=== PATIENT | female | born 1930 | race Caucasian/White ===

== ENCOUNTER 2018-09-05 14:51 | Outpatient (CLI) | payer OTHER, MEDICARE ==
--- NOTE | 2018-09-05 21:30 | GCON ---
[f rep st] CONSULTATION CARDIOLOGY CONSULT DATE OF CONSULTATION: 09/05/2018 CHIEF COMPLAINT: Shortness of breath. HISTORY OF PRESENT ILLNESS: This is an 88-year-old female with history of known aortic stenosis. The patient has been having worsening dyspnea on exertion for the last 3 months, which has been graduall y increasing in severity. The patient did have an echocardiogram done at an outside hospital approxim ately 4-5 weeks ago which showed an TENA of 0.9 cm with moderately severe gradient. The patient has in dicated since that time her shortness of breath has worsened and she can perform only minimal tasks w ithout getting dyspnea. She denies any current chest pain. Baseline ECG on the monitor shows sinus rh ythm. Blood pressure is currently stable. PAST MEDICAL HISTORY: Significant for known aortic stenosis, hypertension. HOME MEDICATIONS: Please see patient's attached list. SOCIAL HISTORY: Patient denies any smoking or drinking. FAMILY HISTORY: Noncontributory. REVIEW OF SYSTEMS: Patient denies any visual changes. No headache and no neck pain. No throat pain. No nasal pain. No ear pain. No back pain. No chest pain. No abdominal pain. She does indicate a moder ate dyspnea with minimal exertion. No lower extremity pain. PHYSICAL EXAM: VITAL SIGNS: Patient is clear, afebrile at 96, blood pressure currently 130/70, heart rate is 72, respirations 12, satting 95% on 2 L nasal cannula. HEENT: Pupils equal and reactive to l ight and accommodation is intact. CARDIAC: Exam is regular rate and rhythm S1, S2. 3/6 systolic murmu r heard best at the right upper sternal border. LUNGS: Decreased breath sounds at the right base. ABD OMEN: Soft, nontender without guarding. EXTREMITIES: No clubbing, no cyanosis, no edema. NEUROLOGIC: The patient is alert and oriented x3. LABORATORY VALUES: Pending at this point. ASSESSMENT/PLAN: Shortness of breath. At this time, we will repeat the patient's surface echocardiog martha to evaluate her worsening shortness of breath. If her TENA has significantly worsened but her grad ients are still [id number] we will obtain a dobutamine stress echo to evaluate if this is a l ow gradient low output severe state. If needed, the patient will be consented for right and left h eart catheterization in addition to her evaluation for valvular heart disease to make sure coronary a rtery disease is not contributing to her underlying state. Further orders following clinical course. /[id number]/MODL
--- NOTE | 2018-09-06 12:19 | ECHO ---
[email or web address] [place] [id number] Main: [phone] Echocardiography Examination Stress Echo Name: SUE LINK MR#: [id number] Study Date: 09/05/2018 Study Time: 03:56 PM Date of : 1930 Age: 88 year(s) Height: 152.4 cm (60 in.) Weight: 54.43 kg (120 lb.) BSA: 1.5 m2 Gender: Female Examination: Stress Echo Contrast: Image Quality: Rhythm: Heart Rate: BP: 138 mmHg/67 mmHg Indication: Eval aortic stenosis Procedure Staff Referring Physician: Geriatrics Physician: Devora Matta [facility] Reading Physician: Joselito Mckeon MD Requesting Provider: Ordering Physician: Joselito Mckeon MD Indication: Eval aortic stenosis Measurements Chambers AV/MV Label Value Normal Value Label Value Normal Value LVOTd 2.2 cm (1.8cm - 2cm) AV PGmean 31 mmHg LVOT VTI 19.3 cm (18cm - 22cm) TENA (VTI) 0.9 cm2 LVOT PGmean 1 mmHg LVOT Vmean 0.56 m/s Findings Aortic Valve: This was a modified dobutamine stress echo to eval aortic stenosis. The resting Vmax was 3.53 with an AV max PG of 50mmHG and a mean of 26mmHG.At 30mcg of dobutamine, the AV max velocity was 4.01 with a AV max PG of 64mmHG and a mean PG os 30mmHG. . Exam Details Procedure Ordered: Stress Echo (No Signature Object) Patient: SUE LINK Study Date: 09/05/2018 Page 1 of 1 03:56 PM [id number]
== END 2018-09-05 16:40 | disposition home or self-care (01) ==
LOC: FCATH 14:51
PROVIDERS: ATTEND Internal Medicine Cardiovascular Disease
DX: I35.0 Nonrheumatic aortic (valve) stenosis (principal); R06.02 Shortness of breath

== ENCOUNTER 2018-09-06 07:36 | Observation (INO) | payer OTHER, MEDICARE ==
[2018-09-06] MEDS ORDERED: DIAZEPAM 5 MG TAB PO ONE (07:38)
[2018-09-06] MEDS ORDERED: ASPIRIN EC 325 MG TAB PO ONE ×2 (07:38→08:02)
[2018-09-06] MEDS ORDERED: FAMOTIDINE 20 MG TAB PO ONE (07:38)
[2018-09-06] MEDS ORDERED: diphenhydrAMINE 25 MG CAP PO ONE ×2 (07:38→08:02)
[2018-09-06] MEDS ORDERED: NS 1,000 ML IV ONE (07:38)
[2018-09-06] MEDS ORDERED: FAMOTIDINE 20 MG TAB ONE (08:02)
[2018-09-06] MEDS ORDERED: DIAZEPAM 5 MG TAB ONE (08:03)
[2018-09-06] MEDS ORDERED: LIDOCAINE 1% 300 MG/30 ML SDV ONE (08:17)
[2018-09-06] MEDS ORDERED: fentaNYL 100 MCG/2 ML INJ ONE ×2 (08:18→10:50)
[2018-09-06] MEDS ORDERED: MIDAZOLAM 2 MG/2 ML VIAL ONE (08:18)
[2018-09-06] MEDS ORDERED: IOPAMIDOL (ISOVUE-370) 150 ML BTL IV ONE ×3 (08:18→10:46)
[2018-09-06 08:30] LABS: PLATELET COUNT 165 10^3/uL (150-400)
--- NOTE | 2018-09-06 08:35 | CPEKG ---
Test Reason : OPEN Blood Pressure : / mmHG Vent. Rate : 058 BPM Atrial Rate : 058 BPM P-R Int : 148 ms QRS Dur : 095 ms QT Int : 432 ms P-R-T Axes : 065 002 053 degrees QTc Int : 425 ms Sinus rhythm Abnormal R-wave progression, early transition Confirmed by Doug Lopez ([id number]) on 09/06/2018 8:34:31 AM Referred By: DEANNA LINK Confirmed By:Doug Lopez
[2018-09-06 08:39] LABS: INR 0.91 (0.83-1.16); PROTIME(PATIENT) 11.9 SEC (12.0-15.0)
--- NOTE | 2018-09-06 08:40 | PDHPUP ---
History & Physical Update H&P update statement: This history and physical update is based on an assessment of the patient which was completed after admission or registration (within 24 hours), but prior to the surgery/procedure. H&P update: H&P reviewed & patient examined, no change in patient's condition since H&P completed
--- NOTE | 2018-09-06 08:40 | PDPROPOC ---
Sedation Plan of Care Sedation Plan of Care: mental status noted, patient educated of risks, benefits , alternatives, patient can tolerate sedation ASA Classification: ASA 2 Planned drugs: fentanyl, midazolam Mallampati Score: Class 2 Mallampati Reference Image: Patient passed 3-3-2 rule?: Yes
[2018-09-06] MEDS ORDERED: CLOPIDOGREL BISULFATE 75 MG TAB ONE (09:12)
[2018-09-06] MEDS ORDERED: BIVALIRUDIN 250 MG/5 ML VIAL IV ONE (09:41)
[2018-09-06] MEDS ORDERED: hydrALAZINE 20 MG/ML VIAL ONE (10:05)
[2018-09-06] MEDS ORDERED: NITROGLYCERIN 1,500 MCG/15 ML VIAL MISC ONE (10:15)
[2018-09-06] MEDS ORDERED: CARBOXYMETHYLCELLULOSE 1% 0.4 ML DROPERETTE EACHEYE PRN (11:53)
[2018-09-06] MEDS ORDERED: traZODone 50 MG TAB PO PRN (11:53)
[2018-09-06] MEDS ORDERED: HYDROCODONE/APAP 5/325 TAB PO PRN (11:56)
[2018-09-06] MEDS ORDERED: NITROGLYCERIN 0.4 MG BTL SL PRN (11:56)
[2018-09-06] MEDS ORDERED: ATROPINE SULFATE 1 MG/10 ML SYR IVP PRN (11:56)
[2018-09-06] MEDS ORDERED: LORazepam 2 MG/ML INJ IVP PRN (11:56)
[2018-09-06] MEDS ORDERED: OXYCODONE/APAP 5/325 TAB PO PRN (11:56)
[2018-09-06] MEDS ORDERED: ONDANSETRON 4 MG/2 ML VIAL IVP PRN (11:56)
[2018-09-06] MEDS ORDERED: TEMAZEPAM 15 MG CAP PO PRN (11:56)
--- NOTE | 2018-09-06 12:56 | CPIP ---
[f rep st] INVASIVE CARDIAC PROCEDURE DATE OF PROCEDURE: 09/06/2018 INDICATION FOR PROCEDURE: Shortness of breath, known severe aortic stenosis. PROCEDURE: 1. Nonselective left groin sheathogram. 2. 7-[place] sheath in the right common femoral vein. 3. Right heart catheterization with [place] catheter. 4. Bilateral coronary angiography. 5. Abdominal aortogram. 6. Percutaneous coronary intervention of mid right coronary artery utilizing Synergy 2.5 x 16 mm salome nt. 7. Attempted wiring of heavily calcified tortuous left anterior descending. HISTORY: Briefly, this is an 88-year-old female with history of worsening shortness of breath, known severe aortic stenosis, which is worsened over the last 6 months. The patient was consented for rig ht and left heart catheterization in anticipation for eventual TAVR as discussed with Dr. Coy from CT Surgery. DESCRIPTION OF PROCEDURE: After informed consent, the patient was brought to [facility] where the left groi n was prepped and draped in sterile fashion. Using lidocaine, a short 6-[place] sheath in the right c ommon femoral artery verified angiographically. A 7-[place] sheath in the left common femoral vein. [place] catheter was advanced. PA pressure systolic was 47 with diastolic 20 with a mean of 32. W edge pressure was a mean of 17, A-wave 23, V-wave 23. RV pressure systolic 45, diastolic 9, end of 1 7. RA pressure mean of 12, A-wave 16, V-wave 12. Cardiac output was measured to be 3.7, with a Constantino of 2.4. AO sat was 88% with a PA sat of 66%. [place] catheter was then removed. There was exces sive tortuosity and calcification of the descending aorta and aortic iliac conduits; thus, we upsized the short 6-[place] sheath in the left common femoral artery to a 45 cm Destination sheath over a sti ff wire. Through this 6-[place] sheath, a JL4 catheter was advanced to the left coronary artery. Images of the left coronary artery revealed normal, but tortuous left main. The circumflex artery had mild plaque disease with mild plaque disease ranging 20% to 30% through its course, but no high-grade lesion. T he LAD was a very tortuous and heavily calcified vessel with multiple lesions throughout its course. There was a proximal lesion at the takeoff of septal wood planer, which had an a pinch of approximate ly 70% going into another area in its mid LAD after a tortuous calcified section of another area of 7 0%. There was a third lesion of at least 70% in the mid distal aspect before the LAD turned to an ap ical LAD. After these images were obtained, the JL4 catheter was removed. The JR4 catheter was advanced to the right coronary artery. Images of the right coronary artery reve aled normal ostial RCA, 30% disease in the proximal RCA. There was a smooth tubular 70% lesion in th e mid RCA. Distally, the RPDA was small and the RPLS appeared to be free of disease. After these im ages were obtained, the JR4 catheter was removed. INTERVENTION REPORT: At this time, we decided to intervene on the smooth tubular lesion in the mid R CA as this appeared to be a soft plaque compared to the left coronary artery disease. A hockey-stick guide catheter was advanced to the right coronary artery. A Choice PT wire was placed down to the d istal RPLS. Predilatation commenced with a 2.5 x 12 balloon at 10 atmospheres. After this was perfo rmed, the balloon was removed. Angiogram was obtained, which showed improved patency of the mid RCA. We decided to attempt to place a stent; however, the stent would not traverse the proximal calcified area; thus, a GuideLiner was placed and 2.5 x 60 mm Synergy drug eluting stent was placed in the mid RCA and deployed at 14 atmospheres. After balloon angiogram was obtained, which showed excellent pat ency of the area with mild step-up, step-down, 200 mcg of nitroglycerin were administered IC and this verified no perforation, dissection from the stented area. The wire was pulled back. The Guide Cat heter was removed. At this time, we decided to attempt to wire the LAD given the multiple tandem les ions and heavily calcification tortuosity, a JL4 Guide Catheter was advanced to left coronary artery and advanced. Of note, the patient was on Angiomax bolus and drip during this entire time and had re ceived 600 Plavix prior to the procedure. A JL4 6-[place] Guide Catheter was placed in left coronary artery. Attempts to place the Choice PT wire to maneuver down the LAD; however, this wire could not be manipulated, secondary to the excessive calcification, tortuosity of the vessel. This wire was re moved, a Fielder XT was attempted to wire, which did go further than the Choice PT. In attempts to m jake this Fielder all the way down the LAD, we decided to place a 1.5 x 12 Euphora balloon as backup s upport; however, this balloon could not even traverse the proximal tortuous calcified area of the LAD without pulling the wire back. Given the excessive tortuosity and heavy calcification of these mult iple tandem lesions in the LAD, we decided that if the wire could not traverse the entire length of t he vessel, then it would be impossible to get any equipment to track over the wire to fix this area. We decided this time to pull the wire back and retake images, which showed once again intact LAD flow with no new dissection perforation. The Guide Catheter was removed. The pigtail catheter was advan linette to the descending aorta for abdominal aortogram, which showed tortuous, but patent heavily calcif ied aortoiliacs with a tortuous descending aorta. Sheath was exchanged for a short 6-[place] sheath. The patient tolerated the procedure well with no complications. IMPRESSION: 1. Successful percutaneous coronary intervention of high-grade tubular soft mid right coronary arter y lesion. 2. Heavily calcified, tortuous with tandem lesions in the left anterior descending , which could not even be wired, let alone having equipment passed. 3. Mild plaque disease in the left circumflex artery. 4. Moderate pulmonary hypertension. 5. Reduced cardiac output. PLAN: The patient has already seen CT Surgery who deemed her a quite frail and high risk surgical ca ndidate. The patient, herself, does not want to proceed with open heart surgery if possible, and giv en her overall age and frailty , we will plan for a move forward TAVR despite her LAD disease, second el to the fact the LAD disease is multiple lesions in a very heavily calcified vessel and this most likely is not driving her underlying shortness of breath. The patient does not have any chest pain o r angina-like symptoms. We will continue with our TAVR workup per protocol with CT of the chest, abd omen, and pelvis, second surgical consult, and carotid ultrasound. /[id number]/MODL
[2018-09-06] MEDS ORDERED: FLUTICASONE NASAL 120 SPRAYS/16 GM MDI EACHNARE PRN (13:28)
--- NOTE | 2018-09-06 18:18 | GCON ---
[f rep st] CONSULTATION DATE OF CONSULTATION: 09/06/2018 REFERRING PHYSICIAN: Yogesh Chris MD REASON FOR CONSULTATION: Severe aortic stenosis. HISTORY: The patient is an 88-year-old woman with worsening shortness of breath. She has had a hist ory of aortic stenosis and recently underwent echocardiography which shows that her disease has progr essed to severe aortic stenosis, and she is symptomatic. PAST MEDICAL HISTORY: Remarkable for hypertension, depression, macular degeneration, hypothyroidism, pulmonary hypertension, and aortic stenosis. PAST SURGICAL HISTORY: Remarkable for spinal fusion in 2006. PHYSICAL EXAMINATION: GENERAL: She is an elderly appearing, frail 88-year-old woman in no acute dis tress. HEART: Systolic murmur. LUNGS: Clear to auscultation. EXTREMITIES: No clubbing, cyanosis , or edema. NEUROLOGIC: She is alert and oriented. DATA REVIEWED: Echocardiogram shows severe aortic stenosis with a valve area 0.8 sq cm. She is undergoing coronary angiography today. IMPRESSION: Severe symptomatic aortic stenosis in an 88-year-old woman who is at increased risk for surgical aortic valve replacement. RECOMMENDATIONS: I have recommended that she proceed with her TAVR workup. I would anticipate that she may have some coronary artery disease, but hopefully this is amenable to PCI if it is significant , and we can continue with the planned TAVR workup and evaluation. /[id number]/MODL
[2018-09-06] MEDS ORDERED: LATANOPROST 0.005% 2.5 ML OPHT DROPS EACHEYE SCH (21:00)
[2018-09-07 04:48] LABS: PLATELET COUNT 138 10^3/uL (150-400)
--- NOTE | 2018-09-07 06:32 | PDCARPN ---
Cardiology Progress Note Chief Complaint: SOB Assessment/Plan: Assessment: SOB severe CAD Plan: 09/07/18 06:29 patient stable this AM pt has seen Dr. Coy who deemed patient suitable for TAVR Patient has known diffuse severe LAD disease which was present on prior cath RCA disease was new--PCI performed CTA today d/c later this AM Subjective: doing well Reviewed/Discussed With: multidisciplinary team Time Spent with Patient: greater than 25 minutes Time Spent with Patient: Greater than 25 minutes spent on this patients care, greater than 50% of time spent counseling, educating, and coordinating care regarding the above mentioned plan. Objective: Vital Signs (8 Hrs) Temp Pulse Resp BP Pulse Ox 09/07/18 03:19 36.6 C 69 19 104/50 L 99 09/06/18 23:38 36.6 C 71 16 122/88 H 99 Intake/Output (24 Hrs) 09/06/18 09/07/18 09/08/18 05:59 05:59 05:59 Intake Total 400 Balance 400 Intake: Oral (ml) 400 Other: Weight 54.431 kg Number of Voids Toilet 1 Result Diagrams: 09/07/18 03:18 09/07/18 03:18 - Physical Exam Constitutional: no apparent distress Eyes: PERRL Ears, Nose, Mouth, Throat: moist mucous membranes Cardiovascular: regular rate and rhythm, systolic murmur Peripheral Pulses: 1+: femoral (R), femoral (L) Respiratory: clear to auscultate bilat Gastrointestinal: normoactive bowel sounds Genitourinary: no suprapubic tenderness Skin: no rashes Musculoskeletal: no muscular tenderness Neurologic: AAOx3 Psychiatric: cooperative ICD10 Worksheet Patient Problems: Problems Problem Status Onset Aortic stenosis Acute CAD (coronary artery disease) Acute - ICD10 Problem Qualifiers (1) CAD (coronary artery disease) Qualifiers: Coronary Disease-Associated Artery/Lesion type: [place] artery [place] vs. transplanted heart: [place] heart Associated angina: with other forms of angina Qualified Code(s): I25.118 - Atherosclerotic heart disease of [place] coronary artery with other forms of angina pectoris (2) Aortic stenosis Qualifiers: Cardiac valve disease etiology: nonrheumatic Qualified Code(s): I35.0 - Nonrheumatic aortic (valve) stenosis
--- NOTE | 2018-09-07 07:01 | GDS ---
[f rep st] DISCHARGE SUMMARY DISCHARGE DIAGNOSIS: 1. Aortic stenosis. 2. Coronary artery disease. HOSPITAL COURSE: Briefly, this is an 88-year-old female with history of worsening shortness of breat h over the last 6 months. The patient had been having close followup as an outpatient at an outside hospital for her underlying aortic stenosis which has progressed to severe levels. The patient did h ave a recent dobutamine stress echo, which verified the severity of her underlying severe aortic sten osis. The patient also has a known history of severe LAD disease, which was not intervened on second el to heavy tortuosity and calcification. The patient underwent a cardiac catheterization 9, which once again redemonstrated as heavily calcified and tortuous, diffusely diseased LAD. The pa tient had only mild disease in the circumflex artery, but had a new lesion in her mid right coronary artery, which was successfully intervened on with one Synergy drug-eluting stent. The patient tolera sera the procedure well with no issues. Overnight, the patient has been stable with no issues. She i s mildly anemic at 9.7 with a creatinine of 1.5; however, she is clinically stable from a vital signs standpoint. She will undergo her CTAs of her chest, abdomen and pelvis today for her TAVR workup. Our goal will be to plan for eventual TAVR within the week. The patient did see Dr. Coy from [place] [facility] who deemed the patient to be excessively frail and given her known chronic LAD disease, and he r shortness of breath, felt that the aortic stenosis was most likely her underlying driving factor fo r her symptoms. The patient will be discharged later this morning. Will follow up with Dr. Can marie for the second CT surgical opinion for evaluation. If deemed by Dr. Lozano to be suitable for T AVR, we will proceed with this procedure within the week's time. The patient will be discharged home this morning with baby aspirin and Plavix, as well as the rest of her home medications. /[id number]/MODL
[2018-09-07 07:10] VITALS: BP 116/53
[2018-09-07] MEDS ORDERED: CALCIUM CARB W/VIT D 500 MG TAB PO SCH (09:00)
[2018-09-07] MEDS ORDERED: LOSARTAN POTASSIUM 25 MG TAB PO SCH (09:00)
[2018-09-07] MEDS ORDERED: OMEGA-3 FATTY ACIDS 1,000 MG CAP PO SCH (09:00)
[2018-09-07] MEDS ORDERED: CLOPIDOGREL BISULFATE 75 MG TAB PO SCH (09:00)
[2018-09-07] MEDS ORDERED: METOPROLOL SUCCINATE XR 50 MG TAB PO SCH (09:00)
[2018-09-07] MEDS ORDERED: Herbals/Supplements -Info Only PO SCH (09:00)
[2018-09-07] MEDS ORDERED: ASPIRIN 81 MG CHEWABLE TAB PO SCH (09:00)
[2018-09-07] MEDS ORDERED: CYANO/VITAMIN B12 1000 MCG TAB PO SCH (09:00)
--- NOTE | 2018-09-07 09:16 | ASDISCHSUM ---
Discharge Information Plan Status:Home with No Needs Medically Cleared to Leave:09/07/2018 Discharge Date:09/07/2018 CM D/C Disposition:Home, Routine, Self-Care ADT D/C Disposition:Home, Routine, Self-Care Projected Discharge Date:09/07/2018 Transportation at D/C: Discharge Delay Reason: Follow-Up Date:09/07/2018 Discharge Slot: Final Diagnosis: Placement Information Patient Contact Information Contact Name:MIGUEL Relationship:Son Address:[address] City:[facility] Phone: [facility]/Zip Code:[place] [address] Email: Financial Information Financial Class:Medicare Primary Plan Desc:MEDICARE OUTPATIENT Primary Plan Number:[id number] Secondary Plan Desc:AARP/MDR SUPPLEMENT Secondary Plan Number:[id number] Assessment Information LACE LACE Length of stay for Answers: Less than 1 day current admission Acuity / Level of Answers: No Care: Did the patient have an inpatient admission? Comorbidities - select Answers: Chronic pulmonary disease all that apply Other Notes: HTN, hypothyroidism, ma cul ar degeneration, # of Emergency department Answers: 0 visits in the last 6 months Social determinants Answers: Mental health diagnosis (anxiety, depression, pers onality disorders, etc.) Score: 6 Date Signed: 09/07/2018 09:15 AM Electronically Signed By:Cara Leone RN Intervention Information
[2018-09-07] MEDS ORDERED: IOPAMIDOL (ISOVUE 370) 100 ML BTL IV ONE (09:32)
--- NOTE | 2018-09-08 10:22 | CPEKG ---
Test Reason : OPEN Blood Pressure : / mmHG Vent. Rate : 066 BPM Atrial Rate : 066 BPM P-R Int : 151 ms QRS Dur : 092 ms QT Int : 425 ms P-R-T Axes : 063 014 057 degrees QTc Int : 446 ms Sinus rhythm Abnormal R-wave progression, early transition Confirmed by Doug Lopez ([id number]) on 09/08/2018 10:22:25 AM Referred By: DEANNA LINK Confirmed By:Doug Lopez
== END 2018-09-07 11:04 | disposition home or self-care (01) ==
LOC: FCATH 07:36 → F2W 11:29
PROVIDERS: ADMIT Internal Medicine Cardiovascular Disease; ATTEND Internal Medicine Cardiovascular Disease
PROC: 4A023N8 Measurement of Cardiac Sampling and Pressure, Bilateral, Percutaneous Approach (ICD-10-PCS; principal; 2018-09-06)
PROC: B2111ZZ Fluoroscopy of Multiple Coronary Arteries using Low Osmolar Contrast (ICD-10-PCS; principal; 2018-09-06)
PROC: B41D1ZZ Fluoroscopy of Aorta and Bilateral Lower Extremity Arteries using Low Osmolar Contrast (ICD-10-PCS; principal; 2018-09-06)
PROC: 027034Z Dilation of Coronary Artery, One Artery with Drug-eluting Intraluminal Device, Percutaneous Approach (ICD-10-PCS; principal; 2018-09-06)
DX: I25.10 Atherosclerotic heart disease of native coronary artery without angina pectoris (principal); I35.0 Nonrheumatic aortic (valve) stenosis; I70.0 Atherosclerosis of aorta; I70.8 Atherosclerosis of other arteries; D64.9 Anemia, unspecified; I10 Essential (primary) hypertension; E03.9 Hypothyroidism, unspecified; H35.30 Unspecified macular degeneration; F32.9 Major depressive disorder, single episode, unspecified
CPT/HCPCS: 71275; 74174; 93005; 93460; 93880; C1725; C1769; C1874; C1887; C9600; G0278; J0360; J0583; J1644; J2250; J2405; J3010; Q9967

== ENCOUNTER 2018-09-13 06:18 | Inpatient (IN) | payer OTHER, MEDICARE ==
[~2018-09-13 06:18] MED LIST: DOBUTamine/DEXTROSE 250 ML IV ONE
[2018-09-13] MEDS ORDERED: IOPAMIDOL (ISOVUE-370) 150 ML BTL IV ONE (06:52)
[2018-09-13] MEDS ORDERED: LIDOCAINE 1% 300 MG/30 ML SDV ONE (06:52)
[2018-09-13] MEDS ORDERED: BUPIVACAINE/EPI 0.25% 30 ML SDV ONE (06:53)
--- NOTE | 2018-09-13 07:01 | PDANEPAE ---
ANE History of Present Illness here for TAVR ANE Past Medical History - Cardiovascular History Hx Hypertension: No Hx Arrhythmias: No Hx Chest Pain: No Hx Coronary Artery / Peripheral Vascular Disease: Yes Hx CHF / Valvular Disease: No Hx Palpitations: No Cardiovascular History Comment: CAD with LAD disease - Pulmonary History Hx COPD: No Hx Asthma/Reactive Airway Disease: No Hx Recent Upper Respiratory Infection: No Hx Oxygen in Use at Home: Yes Hx Sleep Apnea: Yes - Endocrine History Hx Diabetes: No Hypothyroid: Yes Hyperthyroid: No - Renal History Hx Renal Disorders: No ANE Review of Systems Review of systems is: negative Review of Systems: - Exercise capacity Exercise capacity: <4 METS ANE Patient History - Allergies Allergies/Adverse Reactions: lisinopril Allergy (Verified 09/05/18 15:08) lovastatin Allergy (Verified 09/05/18 15:08) - Home Medications Home medications: home medication list seen and reviewed Home Medications: Aspirin [Aspirin 81mg (*)] 81 mg PO DAILY 09/06/18 [Last Taken Unknown] Calcium Carb W/Vit D [Calcium Carb W/Vit D 500/200 (*)] 500 mg PO DAILY [Last Taken Unknown] Carboxymethylcellulose Sodium [Thera Tears] 1 drop EACHEYE DAILY PRN 09/06/18 [ Last Taken Unknown] Cyanocobalamin [Vitamin B12 (*)] 1,000 mcg PO DAILY 09/06/18 [Last Taken Unknown ] Furosemide [Lasix 40 MG (*)] 40 mg PO DAILY 09/06/18 [Last Taken Unknown] Herbals/Supplements -Info Only 1 ea PO DAILY 09/06/18 [Last Taken Unknown] Latanoprost 0.005% [Xalatan 0.005% (*)] 1 drops EACHEYE HS 09/06/18 [Last Taken Unknown] Losartan Potassium [Cozaar 25 mg (*)] 25 mg PO DAILY 09/06/18 [Last Taken Unknown] Metoprolol Succinate Xr [Toprol Xl 50 mg (*)] 50 mg PO DAILY 09/06/18 [Last Taken Unknown] Garrison-3 Fatty Acids [Fish Oil 1000 mg (*)] 1,000 mg PO DAILY 09/06/18 [Last Taken Unknown] traZODone [traZODONE 50MG (*)] 50 mg PO HS PRN 09/06/18 [Last Taken Unknown] - NPO status NPO Status: no food or drink >8 hours - Smoking Hx Smoking Status: Former smoker ANE Labs/Vital Signs - Vital Signs Vital Signs: reviewed preoperatively; see RN documention for details Height: 149.86 cm Weight: 57.153 kg ANE Physical Exam - Airway Neck exam: FROM Mallampati Score: Class 1 Mouth exam: normal dental/mouth exam - Pulmonary Pulmonary: no respiratory distress - Cardiovascular Cardiovascular: regular rate and rhythym, systolic murmur - ASA Status ASA Status: IV ANE Anesthesia Plan Anesthesia Plan: GA with mask Lines/Monitors: central line
--- NOTE | 2018-09-13 07:10 | PDHPUP ---
History & Physical Update H&P update statement: This history and physical update is based on an assessment of the patient which was completed after admission or registration (within 24 hours), but prior to the surgery/procedure. H&P update: H&P reviewed & patient examined
[2018-09-13] MEDS ORDERED: fentaNYL 100 MCG/2 ML INJ ONE (07:18)
[2018-09-13] MEDS ORDERED: PROPOFOL/EMULSION 500 MG/50 ML BOTTLE IV ONE (07:19)
[2018-09-13] MEDS ORDERED: PHENYLEPHRINE HCL 100 MCG/ML SYR ONE (07:20)
[2018-09-13] MEDS ORDERED: DEXMEDETOMIDINE HCL 400 MCG in NS 100 ML IV ONE (07:30)
[2018-09-13] MEDS ORDERED: CLOPIDOGREL BISULFATE 75 MG TAB ONE (07:43)
[2018-09-13] MEDS ORDERED: ePHEDrine SULFATE 25 MG/5 ML SYR ONE (07:44)
[2018-09-13] MEDS ORDERED: NITROGLYCERIN 1,500 MCG/15 ML VIAL MISC ONE (07:55)
[2018-09-13] MEDS ORDERED: HEPARIN 10,000 UNIT/10 ML MDV (1,000 UNIT/ML) ONE (07:56)
[2018-09-13] MEDS ORDERED: ceFAZolin 2 GM/DEXTROSE 100 ML IV ONE (08:00)
[2018-09-13] MEDS ORDERED: PROTAMINE SULFATE 50 MG/5 ML VIAL IVP ONE (10:07)
[2018-09-13] MEDS ORDERED: ONDANSETRON DISINTEGRATING 4 MG TAB PO PRN (10:21)
[2018-09-13] MEDS ORDERED: IBUPROFEN 800 MG TAB PO PRN (10:21)
[2018-09-13] MEDS ORDERED: HYDROmorphONE/DILAUDID 1 MG/ML INJ IVP PRN (10:21)
[2018-09-13] MEDS ORDERED: hydrALAZINE 20 MG/ML VIAL IVP PRN (10:21)
[2018-09-13] MEDS ORDERED: ATROPINE SULFATE 1 MG/10 ML SYR IVP PRN (10:21)
[2018-09-13] MEDS ORDERED: oxyCODONE IR 5 MG TAB PO PRN (10:21)
[2018-09-13] MEDS ORDERED: ONDANSETRON 4 MG/2 ML VIAL IVP PRN (10:21)
[2018-09-13] MEDS ORDERED: traZODone 50 MG TAB PO PRN (10:23)
[2018-09-13] MEDS ORDERED: CARBOXYMETHYLCELLULOSE 1% 0.4 ML DROPERETTE EACHEYE PRN (10:23)
--- NOTE | 2018-09-13 10:48 | POSTANESTH ---
Post Anesthetic Evaluation Cardiovascular Status: Normal, Stable Respiratory Status: Normal, Stable Level of Consciousness/Mental Status: Moderately Sleepy Pain Control: Adequate, Prn Tx Ordered Nausea/Vomiting Control: Adequate, Prn Tx Ordered Complications Possibly Related to Anesthesia: None Noted
--- NOTE | 2018-09-13 11:48 | GOP ---
[f rep st] OPERATIVE REPORT DATE OF OPERATION: 09/13/2018 SURGEON: Aiden Coy MD PREOPERATIVE DIAGNOSIS: Severe symptomatic aortic stenosis. POSTOPERATIVE DIAGNOSIS: Severe symptomatic aortic stenosis. PROCEDURE PERFORMED: 1. Transcatheter aortic valve replacement using a 26 mm Evolut R device via right femoral approach. 2. Cutdown and repair of right common femoral artery. FINDINGS: INDICATIONS: This 88-year-old frail woman was found to have severe symptomatic aortic stenosis. She was recommended to undergo transcatheter aortic valve replacement due to her increased risk for surg ical valve replacement. DESCRIPTION OF PROCEDURE: Patient was taken to the laborer chemical processing, placed on the table in supine position. After the administration of IV antibiotics, and sterile prep and drape, the sheath was placed in [facility] right internal jugular vein for placement of the TVP by the anesthesiologist. Access was obtained in the left groin percutaneously with a #8-Sudanese sheath and the right radial art cheryl was also accessed for placement of the cerebral protection device. We cutdown and exposed the [facility] common femoral artery. Once access had been fully obtained, the patient was heparinized. A #20- Sudanese sheath was placed in the right common femoral artery and positioned in the distal abdominal ao rta. The sentinel device was then passed through the right radial artery and positioned in the origi n of the head vessels to filter to the innominate and left common carotid arteries. On the left side , a pigtail catheter was placed in the aortic arch, and next, we working through the #20-Sudanese sheat h crossed the valve and place the Confida wire. Once the [place] device had been deployed, we broug ht the Evolut R device up from the groin across the arch and then positioned across aortic valve. Stephen soriano in position 2, Dr. Mckeon in position 1, we deployed across the ute anulus without difficul ty. The depth was about 1 and 3 mm. There was no significant PVL. There was no residual gradient. We then removed the filter device from the right radial artery. The sheath was removed from the [facility] common femoral artery and this was repaired directly. It was confirmed to be open by Doppler flow after primary repair of the vessel. The protamine was administered. The radial band was placed on [facility] right radial artery and the #8-Sudanese sheath was left in place as the patient was transferred to [facility] recovery area in stable condition. UTILIZATION REVIEW RN: Dr. Joselito Mckeon. /[id number]/MODL
--- NOTE | 2018-09-13 11:58 | CPIP ---
[f rep st] INVASIVE CARDIAC PROCEDURE DATE OF PROCEDURE: 09/13/2018 INDICATION FOR PROCEDURE: Severe symptomatic aortic stenosis. CO-SURGEONS: Dr. Aiden Coy, Dr. Jessica Rosas, Dr. Roberth Cortez PROCEDURE: 1. Right radial artery access with placement of [place] cerebral protection device. 2. 8-South African sheath in the left common femoral artery. 3. Cutdown of right common femoral artery with placement of 20-South African sheath. 4. Placement of Medtronic CoreValve Evolut Pro 26 mm valve by the transfemoral route. HISTORY: Briefly, this 88-year-old female who has severe symptomatic aortic stenosis. The patient w as deemed by CT Surgery to be a high-risk candidate for open AVR. Given these findings, patient was consented for transfemoral TAVR. DESCRIPTION OF PROCEDURE: After informed consent, the patient was brought to [facility] where the patient was placed under MAC anesthesia. Right IJ access was obtained by Anesthesia with placement of temporary pacemaker wire placed in right ventricle, which capture was assessed. Right radial access was obtained after Preet's test was performed showing patent ulnar flow. There was a r adial loop proximally in the right mid forearm area, which was overcome with an angled Glidewire. A 25 cm sheath was then placed into the right wrist to overcome this loop. After this was performed, t he patient was administered 2000 of heparin and 200 mcg of nitroglycerin through this sheath as a rad ial cocktail. Our attention was then turned to the left common femoral artery where a short 8-South African sheath was mango linette in the left common femoral artery. This was upsized to a 45 cm 8-South African sheath over a stiff wire . Given the tortuosity and calcification of the aorta and iliac conduits, the right common femoral a rtery was approached via cutdown secondary to the fact the patient has significant calcification and in tortuosity. Please refer Dr. Coy's note for the full report of femoral cutdown. After the femoral cutdown was exposed, a 20-South African sheath was placed in the right common femoral marcos ry and placed in the mid distal aorta. At this time, patient was administered a total of 11,000 hepa rin IV. Valve was crossed with an AL1 catheter, straight stiff Glidewire, switched out for a pigtail catheter, switched out for a Confida wire. We then proceeded with placement of a Medtronic CoreValv e Evolut PRO 26 mm valve. This was deployed successfully across the valve. Post-deployment, there w as excellent gradients noted with excellent EOA. Pigtail catheter was removed. The [place] cerebra l protection device had been deployed successfully at the beginning of the case and was withdrawn at the end of the case. The right radial wrist area was closed with a radial band. Left groin was sutu red in place. Right groin was closed with surgical procedure by Dr. Coy. IMPRESSION: Successful placement of Medtronic CoreValve Evolut PRO 26 mm valve via the transfemoral route. PLAN: The patient will be admitted to PCU. Further orders following clinical course. /[id number]/MODL
--- NOTE | 2018-09-13 13:32 | PDMN ---
Medical Necessity Medical necessity: [facility] IP only surgery; cpt 59852 TAVR
[2018-09-13] MEDS: ACETAMINOPHEN 325 MG TAB PO SCH ×3 (14:57→21:23)
--- NOTE | 2018-09-13 17:46 | SOAPPROG ---
SOAP Progress Note Assessment/Plan: Assessment: Plan: Subjective: Called about blood on dressing, right groin.. Exam: One red 4x4 dressing, original from this morning, no clot. Ecchymotic friable skin. No hematoma Good pulse Warm extremity Low level fem stop for one hour Objective: Vital Signs Temp Pulse Resp BP Pulse Ox 36.5 C 71 21 H 162/78 H 96 09/13/18 14:17 09/13/18 16:34 09/13/18 16:34 09/13/18 16:34 09/13/18 16:34 ICD10 Worksheet Patient Problems: Problems Problem Status Onset Aortic stenosis Acute CAD (coronary artery disease) Acute
[2018-09-13] MEDS: LATANOPROST 0.005% 2.5 ML OPHT DROPS EACHEYE SCH (20:56)
[2018-09-14 04:27] LABS: PLATELET COUNT 126 10^3/uL (150-400)
[2018-09-14] MEDS: ACETAMINOPHEN 325 MG TAB PO SCH ×3 (06:03→18:27)
--- NOTE | 2018-09-14 07:08 | PDCARPN ---
Cardiology Progress Note Chief Complaint: SOB Assessment/Plan: Assessment: s/p TAVR right femoral cut-down ooze Plan: 09/14/18 07:06 right femoral side looks better pt had overnight spike in temp--down with tylenol transfuse PRBCs given reduced Hgb OOB check echo IS daily labs Subjective: stable Reviewed/Discussed With: multidisciplinary team Time Spent with Patient: greater than 25 minutes Time Spent with Patient: Greater than 25 minutes spent on this patients care, greater than 50% of time spent counseling, educating, and coordinating care regarding the above mentioned plan. Objective: Vital Signs (8 Hrs) Temp Pulse Resp BP Pulse Ox 09/14/18 06:52 36.7 C 66 18 98/46 L 96 09/14/18 03:19 36.9 C 73 20 128/47 H 100 09/13/18 23:10 37.2 C 76 14 97/43 L 98 Intake/Output (24 Hrs) 09/13/18 09/14/18 09/15/18 05:59 05:59 05:59 Intake Total 590 Output Total 380 Balance 210 Intake: Oral (ml) 590 Output: Urine (ml) 380 Catheter 380 Other: Weight 57.153 kg Result Diagrams: 09/14/18 03:34 09/14/18 03:34 - Physical Exam Constitutional: no apparent distress Eyes: PERRL Ears, Nose, Mouth, Throat: moist mucous membranes Cardiovascular: regular rate and rhythm, systolic murmur Peripheral Pulses: 1+: femoral (R), femoral (L) Respiratory: clear to auscultate bilat Gastrointestinal: normoactive bowel sounds Genitourinary: no suprapubic tenderness Skin: no abrasions Musculoskeletal: no muscular tenderness Neurologic: AAOx3 Psychiatric: cooperative ICD10 Worksheet Patient Problems: Problems Problem Status Onset Aortic stenosis Acute CAD (coronary artery disease) Acute
[2018-09-14] MEDS ORDERED: FUROSEMIDE 40 MG/4 ML VIAL IVP ONE (09:00)
[2018-09-14] MEDS ORDERED: FUROSEMIDE 40 MG TAB PO SCH (09:00)
[2018-09-14] MEDS ORDERED: Herbals/Supplements -Info Only PO SCH (09:00)
[2018-09-14] MEDS ORDERED: ASPIRIN 81 MG CHEWABLE TAB PO SCH (09:00)
[2018-09-14] MEDS: CYANO/VITAMIN B12 1000 MCG TAB PO SCH (09:30)
[2018-09-14] MEDS: CALCIUM CARB W/VIT D 500 MG TAB PO SCH (09:30)
[2018-09-14] MEDS: OMEGA-3 FATTY ACIDS 1,000 MG CAP PO SCH (09:31)
--- NOTE | 2018-09-14 12:27 | ECHO ---
[email or web address] [address] Main: [phone] Echocardiography Examination Transthoracic Name: SUE LINK MR#: [id number] Study Date: 09/14/2018 Study Time: 07:51 AM Date of : 1930 Age: 88 year(s) Height: 149.9 cm (59 in.) Weight: 57.15 kg (126 lb.) BSA: 1.52 m2 Gender: Female Examination: Echo Contrast: Image Quality: Rhythm: Normal sinus rhythm Heart Rate: 64 bpm BP: 98 mmHg/46 mmHg Indication: Post TAVR Procedure Staff Referring Physician: [employer] Tender: Bryan Yan RDCS Reading Physician: Joselito Mckeon MD Requesting Provider: Ordering Physician: Joselito Mckeon MD Indication: Post TAVR Measurements Chambers AV/MV Label Value Normal Value Label Value Normal Value LVOT Vmax 1.13 m/s (0.7m/s - 1.1m/s) AR (ERO) 0.27 cm2 LVOTd 1.9 cm (1.8cm - 2cm) AR PHT 0.77 s LVOT VTI 28 cm (18cm - 22cm) AR PHT 767 ms LVDd, 2D 4 cm (3.9cm - 5.3cm) AR PISA Radius 0.6 cm LVDs, 2D 2.3 cm (2.1cm - 4cm) AR Reg. Fraction 45 % IVSd, 2D 1 cm (0.6cm - 1.1cm) AR Reg. Volume 36 ml LVPWd, 2D 1 cm AR Vena contracta 0.5 cm LVEF, 2D 75 % (54% - 74%) AR Vmax 2.54 m/s LVOT PGmean 3 mmHg AR VTI 135 cm LVOT Vmean 0.84 m/s AV PGmax 8 mmHg LADs, 2D 3.1 cm (2.7cm - 3.8cm) AV PGmean 5 mmHg AV Vmax 1.38 m/s TENA (Vmax) 2.3 cm2 TEAN (VTI) 2.4 cm2 MV E Vmax 0.61 m/s MV A Vmax 0.8 m/s MV E/A 0.76 MV E/E' lateral 14.3 MV E/E' septal 14.3 (0.45 - 1.25) Patient: SUE LINK Study Date: 09/14/2018 Page 1 of 3 07:51 AM MV E' septal 0.04 m/s MV E' lateral 0.04 m/s MV E/E' mean 15.25 MV E' mean 0.04 m/s TV/PV Label Value Normal Value RA Pressure 5 mmHg RVSP 19 mmHg TR Pmax 14 mmHg TR Vmax 1.86 m/s PV PGmax 6 mmHg PV Vmax, Caliper 1.18 m/s (0.6m/s - 0.9m/s) Conclusions Left Ventricle: Normal global systolic left ventricular function. Mitral Valve: Mild mitral regurgitation. Aortic Valve: Post TAVR. There is mild to moderate perivalvular regurgitation. Tricuspid Valve: Mild tricuspid regurgitation. Right Ventricular systolic pressure is measured at 19 mmHg. Findings Left Ventricle: Left ventricle is normal in size. Normal global systolic left ventricular function. Left ventricle wall thickness is normal. There are no regional wall motion abnormalities. Diastolic Dysfunction is indeterminate. No LV hypertrophy. Right Ventricle: Normal size right ventricle. Right ventricular wall thickness is normal. Right ventricular systolic function is normal. Left Atrium: The left atrium is normal in size. Right Atrium: The right atrium is normal in size. Mitral Valve: Mitral valve appears structurally normal. Mild mitral regurgitation. No mitral valve stenosis. There is minimal mitral calcification. Aortic Valve: Post TAVR. mild to moderate prosthetic regurgitation. The prosthetic aortic valve regurgitation location is perivalvular. There is mild to moderate perivalvular regurgitation. Tricuspid Valve: Mild tricuspid regurgitation. Right Ventricular systolic pressure is measured at 19 mmHg. Pulmonic Valve: No significant pulmonic valve regurgitation is evident. Aorta: The aorta is normal. Pericardium: Patient: SUE LINK Study Date: 09/14/2018 Page 2 of 3 07:51 AM No pericardial effusion. Exam Details Procedure Ordered: Echo (No Signature Object) Patient: SUE LINK Study Date: 09/14/2018 Page 3 of 3 07:51 AM [id number]
[2018-09-14] MEDS: CLOPIDOGREL BISULFATE 75 MG TAB PO SCH (13:18)
[2018-09-14] MEDS: LOSARTAN POTASSIUM 25 MG TAB PO SCH (13:18)
[2018-09-14] MEDS: METOPROLOL SUCCINATE XR 50 MG TAB PO SCH (13:18)
--- NOTE | 2018-09-14 16:27 | ASMTCMCOM ---
CM Note CM Note Notes: Reviewed chart and spoke w/RN. Pt admitted for TAVR procedure, no therapies ordered. Anticipate will dc home w/support of sons when medically stable. CM available for any changes. DC Plan: Independent Date Signed: 09/14/2018 04:27 PM Electronically Signed By:Najma Bauer RN
[2018-09-14] MEDS: LATANOPROST 0.005% 2.5 ML OPHT DROPS EACHEYE SCH (19:38)
[2018-09-15] MEDS: ACETAMINOPHEN 325 MG TAB PO SCH ×2 (00:49→08:48)
[2018-09-15 04:30] LABS: PLATELET COUNT 111 10^3/uL (150-400)
--- NOTE | 2018-09-15 06:59 | PDCARPN ---
Cardiology Progress Note Chief Complaint: SOB Assessment/Plan: Assessment: s/p TAVR right femoral cut-down ooze Plan: 09/14/18 07:06 right femoral side looks better pt had overnight spike in temp--down with tylenol transfuse PRBCs given reduced Hgb OOB check echo IS daily labs 09/15/18 06:58 doing very well pt has no complaints d/c home today reduced lasix dose baby ASA Subjective: doing well Reviewed/Discussed With: multidisciplinary team Time Spent with Patient: greater than 25 minutes Time Spent with Patient: Greater than 25 minutes spent on this patients care, greater than 50% of time spent counseling, educating, and coordinating care regarding the above mentioned plan. Objective: Vital Signs (8 Hrs) Temp Pulse Resp BP Pulse Ox 09/15/18 03:36 37.1 C 79 17 126/68 H 96 Intake/Output (24 Hrs) 09/14/18 09/15/18 09/16/18 05:59 05:59 05:59 Intake Total 590 875 Output Total 380 2150 Balance 210 -1275 Intake: Oral (ml) 590 875 Output: Urine (ml) 380 2150 Catheter 380 950 Toilet 1200 Other: Weight 57.153 kg Number of Voids Toilet 1 Result Diagrams: 09/15/18 03:32 09/15/18 03:32 - Physical Exam Constitutional: no apparent distress Eyes: PERRL Ears, Nose, Mouth, Throat: moist mucous membranes Cardiovascular: regular rate and rhythm Peripheral Pulses: 1+: femoral (R), femoral (L) Respiratory: clear to auscultate bilat Gastrointestinal: normoactive bowel sounds Genitourinary: no suprapubic tenderness Skin: no rashes Musculoskeletal: no muscular tenderness Neurologic: AAOx3 Psychiatric: cooperative ICD10 Worksheet Patient Problems: Problems Problem Status Onset Acute blood loss anemia Acute Aortic stenosis Acute CAD (coronary artery disease) Acute
--- NOTE | 2018-09-15 07:15 | GDS ---
[f rep st] DISCHARGE SUMMARY DISCHARGE DIAGNOSIS: Aortic stenosis. HOSPITAL COURSE: Briefly, this is an 88-year-old female who was deemed to be extreme high risk for o pen AVR with severe symptomatic aortic stenosis. The patient underwent successful transfemoral TAVR placement on 09/13/2018. Postprocedure the patient has done well. She had a slight drop in her hemo globin, which was corrected with transfusion. She was ambulating in the halls without problems. Pos tprocedure echo shows normal ventricular function with normal TAVR with mild to moderate perivalvular leak. The patient will be discharged with her home medications including Plavix and baby aspirin gi karissa her recent PCI. She will follow up in the office in approximately 1 week's time. /[id number]/MODL
[2018-09-15 08:41] VITALS: BP 130/62
[2018-09-15] MEDS: LOSARTAN POTASSIUM 25 MG TAB PO SCH (08:47)
[2018-09-15] MEDS: OMEGA-3 FATTY ACIDS 1,000 MG CAP PO SCH (08:47)
[2018-09-15] MEDS: CALCIUM CARB W/VIT D 500 MG TAB PO SCH (08:47)
[2018-09-15] MEDS: CLOPIDOGREL BISULFATE 75 MG TAB PO SCH (08:47)
[2018-09-15] MEDS: METOPROLOL SUCCINATE XR 50 MG TAB PO SCH (08:47)
[2018-09-15] MEDS: CYANO/VITAMIN B12 1000 MCG TAB PO SCH (08:48)
[2018-09-15] MEDS ORDERED: FUROSEMIDE 20 MG TAB PO SCH (09:00)
--- NOTE | 2018-09-15 09:27 | ASMTLACE ---
DORISE Length of stay for Answers: 1 day current admission Acuity / Level of Answers: Yes Care: Did the patient have an inpatient admission? Comorbidities - select Answers: Coronary Artery Disease all that apply Other Notes: Hypothyroid # of Emergency department Answers: 0 visits in the last 6 months Score: 7 Date Signed: 09/15/2018 09:26 AM Electronically Signed By:Cara Leone RN
--- NOTE | 2018-09-15 09:32 | ASDISCHSUM ---
Discharge Information Plan Status:Home with No Needs Medically Cleared to Leave:09/15/2018 Discharge Date:09/15/2018 CM D/C Disposition:Home, Routine, Self-Care ADT D/C Disposition:Home, Routine, Self-Care Projected Discharge Date:09/15/2018 Transportation at D/C: Discharge Delay Reason: Follow-Up Date:09/15/2018 Discharge Slot: Final Diagnosis: Placement Information Patient Contact Information Contact Name:MIGUEL Relationship:Son Address:[address] City:[facility] Phone: [facility]/Zip Code:[place] [address] Email: Financial Information Financial Class:Medicare Primary Plan Desc:MEDICARE INPATIENT Primary Plan Number:[id number] Secondary Plan Desc:[employer]/MDR SUPPLEMENT Secondary Plan Number:[id number] Assessment Information LACE LACE Length of stay for Answers: 1 day current admission Acuity / Level of Answers: Yes Care: Did the patient have an inpatient admission? Comorbidities - select Answers: Coronary Artery Disease all that apply Other Notes: Hypothyroid # of Emergency department Answers: 0 visits in the last 6 months Score: 7 Date Signed: 09/15/2018 09:26 AM Electronically Signed By:Cara Leone RN [facility] Progress Note CM Note CM Note Notes: Reviewed chart and spoke w/RN. Pt admitted for TAVR procedure, no therapies ordered. Anticipate will dc home w/support of sons when medically stable. CM available for any changes. DC Plan: Independent Date Signed: 09/14/2018 04:27 PM Electronically Signed By:Najma Bredehoeft, RN Case Management Discharge Plan Note Case Management Discharge Discharge Order Complete? Answers: Yes Patient to Obtain Answers: Independently Medications Transportation Arranged Answers: Other Transport will Pick (Date 09/15/2018 12:00 AM & Time) Discharge Comments Notes: 09/15/2018 Case Management Note Pt to discharge independent with follow up as directed. Date Signed: 09/15/2018 09:31 AM Electronically Signed By:Cara Leone RN Intervention Information
== END 2018-09-15 11:00 | disposition home or self-care (01) | DRG 267 ==
LOC: FCATH 06:18 → F2W 10:21
PROVIDERS: ADMIT Internal Medicine Cardiovascular Disease; ATTEND Internal Medicine Cardiovascular Disease
PROC: 02RF38Z Replacement of Aortic Valve with Zooplastic Tissue, Percutaneous Approach (ICD-10-PCS; principal; 2018-09-13)
PROC: X2A5312 Cerebral Embolic Filtration, Dual Filter in Innominate Artery and Left Common Carotid Artery, Percutaneous Approach, New Technology Group 2 (ICD-10-PCS; principal; 2018-09-13)
PROC: 30233N1 Transfusion of Nonautologous Red Blood Cells into Peripheral Vein, Percutaneous Approach (ICD-10-PCS; 2018-09-14)
DX: I35.0 Nonrheumatic aortic (valve) stenosis (principal); Z00.6 Encounter for examination for normal comparison and control in clinical research program; I10 Essential (primary) hypertension; D64.9 Anemia, unspecified; E78.5 Hyperlipidemia, unspecified; I27.20 Pulmonary hypertension, unspecified; D50.9 Iron deficiency anemia, unspecified; Z79.82 Long term (current) use of aspirin; Z79.02 Long term (current) use of antithrombotics/antiplatelets
CPT/HCPCS: C1769; C1884; C1894; J0461; J0690; J1250; J1644; J1940; J2370; J2405; J2704; J2720; J3010; P9016; P9040; Q9967